=== PATIENT | female | born 1965 | race Hispanic/Latino ===

== ENCOUNTER 2017-11-28 01:03 | Emergency (ER) | payer MEDICARE, MEDICAID ==
--- NOTE | 2017-11-28 01:52 | C.PDOC ---
History Of Present Illness 52 y/o female with Hx of bipolar disorder and cigarette smoking presents to ED for complaints of nasal congestion associated with mild headache. Patient states she took Tylenol with no relief. Patient also states she wants a place to stay the night. Denies any other physical complaints. Patient also reports she is 'allergic' to oral antihistamines. Time Seen by Provider: 11/28/17 01:23 Chief Complaint (Nursing): Cough, Cold, Congestion History Per: Patient History/Exam Limitations: no limitations Onset/Duration Of Symptoms: Hrs Current Symptoms Are (Timing): Still Present Recent travel outside of the [place]: No Past Medical History Reviewed: Historical Data, Nursing Documentation, Vital Signs Vital Signs: Last Vital Signs Temp 97.1 F L 11/28/17 05:54 Pulse 78 11/28/17 05:54 Resp 20 11/28/17 05:54 BP 119/70 11/28/17 05:54 Pulse Ox 96 11/28/17 06:30 - Medical History PMH: Bipolar Disorder Surgical History: No Surg Hx Family History: States: No Known Family Hx - Social History Hx Alcohol Use: No Hx Substance Use: No - Immunization History Hx Tetanus Toxoid Vaccination: No Hx Influenza Vaccination: No Hx Pneumococcal Vaccination: No Review Of Systems Constitutional: Negative for: Fever, Chills ENT: Positive for: Nose Congestion. Negative for: Ear Pain, Throat Pain Gastrointestinal: Negative for: Nausea, Vomiting, Abdominal Pain, Diarrhea Skin: Negative for: Rash Neurological: Positive for: Headache. Negative for: Weakness, Numbness Psych: Negative for: Suicidal ideation Physical Exam - Physical Exam Appears: Well, Non-toxic, No Acute Distress Skin: Normal Color, Warm, Dry, No Rash Head: Atraumatic, Normacephalic Eye(s): bilateral: Normal Inspection, PERRL, EOMI Ear(s): Bilateral: Other (Mild erythematous ear canals) Nose: No Discharge, Other (Congested) Oral Mucosa: Moist Throat: Normal, No Erythema, No Exudate, No Drooling, No Mass Neck: Supple Chest: Symmetrical, No Tenderness Cardiovascular: Rhythm Regular, No Murmur Respiratory: Normal Breath Sounds, No Decreased Breath Sounds, No Rales, No Rhonchi, No Wheezing Gastrointestinal/Abdominal: Normal Exam (Clear to auscultation bilaterally ), Bowel Sounds (Normal; Active ), Soft, No Tenderness, No Distention Back: No CVA Tenderness Extremity: Normal ROM, No Calf Tenderness, No Deformity, No Swelling Extremity: Bilateral: Atraumatic, Normal Color And Temperature, Normal ROM Neurological/Psych: Oriented x3, Normal Speech, Other (No focal deficits ) Gait: Steady ED Course And Treatment O2 Sat by Pulse Oximetry: 96 (RA) Pulse Ox Interpretation: Normal Medical Decision Making Medical Decision Making: [facility], headache and cough. pt well appearing with congestion. lungs clear. pt slept comfortably supine for several hours in ED. will d/c with flonase. Disposition Counseled Patient/Family Regarding: Diagnosis, Need For Followup, Rx Given - Disposition Referrals: [facility] [Outside] Disposition: HOME/ ROUTINE Disposition Time: 05:45 Condition: GOOD Additional Instructions: Use flonase as directed. FOllow up in medical clinic. Return for worse symptoms. Prescriptions: Fluticasone Nasal [Flonase] 1 spr NS BID #120 spr Instructions: Seasonal Allergies (DC) Forms: [employer] (Palestinian), General Discharge Instructions - Clinical Impression Clinical Impression: Seasonal allergic rhinitis - PA / ONLINE MEDIA BUYER / Resident Statement MD/DO has reviewed & agrees with the documentation as recorded. - Scribe Statement The provider has reviewed the documentation as recorded by the Ravi Dominguez All medical record entries made by the Rajeshibisaac were at my direction and personally dictated by me. I have reviewed the chart and agree that the record accurately reflects my personal performance of the history, physical exam, medical decision making, and the department course for this patient. I have also personally directed, reviewed, and agree with the discharge instructions and disposition.
[2017-11-28 05:55] VITALS: BP 119/70; PULSE 78; RESP 20; TEMP 97.1
[2017-11-28 06:30] VITALS: O2SAT 96
== END 2017-11-28 05:55 | disposition home or self-care (01) ==
LOC: C.ER 01:03
DX: J30.2 Other seasonal allergic rhinitis (principal); Z87.891 Personal history of nicotine dependence

== ENCOUNTER 2018-01-02 16:47 | Emergency (ER) | payer MEDICARE, MEDICAID ==
[2018-01-02 16:48] VITALS: BMI 27.7
[2018-01-02 17:05] VITALS: RESP 18
--- NOTE | 2018-01-02 17:22 | C.PDOC ---
Time Seen by Provider: 01/02/18 17:18 Chief Complaint (Nursing): Psychiatric Evaluation Past Medical History Vital Signs: Last Vital Signs Temp 98.2 F 01/02/18 16:59 Pulse 96 H 01/02/18 16:59 Resp 18 01/02/18 16:59 BP 129/83 01/02/18 16:59 Pulse Ox 97 01/02/18 16:59 - Medical History PMH: Anxiety, Bipolar Disorder, Schizophrenia Denies: Diabetes, Hepatitis, HIV, HTN, Chronic Kidney Disease, Seizures, Sexually Transmitted Disease - [facility] Procedures GROUP PSYCHOTHERAPY (12/10/17) INDIVIDUAL PSYCHOTHERAPY, SUPPORTIVE (12/10/17) - Social History Hx Alcohol Use: No Hx Substance Use: No - Immunization History Hx Tetanus Toxoid Vaccination: No Hx Influenza Vaccination: No Hx Pneumococcal Vaccination: No ED Course And Treatment O2 Sat by Pulse Oximetry: 97 Disposition - Disposition
--- NOTE | 2018-01-02 18:10 | C.PDOC ---
Time Seen by Provider: 01/02/18 17:18 Chief Complaint (Nursing): Psychiatric Evaluation Past Medical History Vital Signs: Last Vital Signs Temp 98.2 F 01/02/18 16:59 Pulse 96 H 01/02/18 16:59 Resp 18 01/02/18 16:59 BP 129/83 01/02/18 16:59 Pulse Ox 97 01/02/18 18:13 - Medical History PMH: Anxiety, Bipolar Disorder, Schizophrenia Denies: Diabetes, Hepatitis, HIV, HTN, Chronic Kidney Disease, Seizures, Sexually Transmitted Disease - [facility] Procedures GROUP PSYCHOTHERAPY (12/10/17) INDIVIDUAL PSYCHOTHERAPY, SUPPORTIVE (12/10/17) - Social History Hx Alcohol Use: No Hx Substance Use: No - Immunization History Hx Tetanus Toxoid Vaccination: No Hx Influenza Vaccination: No Hx Pneumococcal Vaccination: No ED Course And Treatment O2 Sat by Pulse Oximetry: 97 Medical Decision Making Medical Decision Makin pt seen by Teri from crisis; she has spoken to pt's disability case manager who will see pt tomorrow and help arrange for outpt program. pt is cleared from crisis for discharge. Disposition Counseled Patient/Family Regarding: Diagnosis, Need For Followup - Disposition Disposition: HOME/ ROUTINE Disposition Time: 18:11 Condition: GOOD Additional Instructions: Please make sure to see your disability case manager tomorrow to arrange for outpatient day program. Continue to take your medications as prescribed. Return to ER for any worsening symptoms. Forms: [employer] (German), General Discharge Instructions - Clinical Impression Clinical Impression: Bipolar disorder, Encounter for psychiatric assessment
--- NOTE | 2018-01-02 18:16 | C.PDOC ---
History Of Present Illness 52-year-old female, is sent to the emergency department from [facility] for evaluation of manic behavior. Patient denies an auditory hallucinations. States she is compliant with medications. She denies any suicidal or homicidal ideation. No other complaints at this time. Time Seen by Provider: 01/02/18 17:18 Chief Complaint (Nursing): Psychiatric Evaluation History Per: Patient Current Symptoms Are (Timing): Still Present Past Medical History Reviewed: Historical Data, Nursing Documentation, Vital Signs Vital Signs: Last Vital Signs Temp 98.8 F 01/02/18 18:26 Pulse 95 H 01/02/18 18:26 Resp 18 01/02/18 18:26 BP 108/72 01/02/18 18:26 Pulse Ox 96 01/02/18 18:26 - Medical History PMH: Anxiety, Bipolar Disorder, Schizophrenia Denies: Diabetes, Hepatitis, HIV, HTN, Chronic Kidney Disease, Seizures, Sexually Transmitted Disease - [facility] Procedures GROUP PSYCHOTHERAPY (12/10/17) INDIVIDUAL PSYCHOTHERAPY, SUPPORTIVE (12/10/17) Family History: States: No Known Family Hx - Social History Hx Alcohol Use: No Hx Substance Use: No - Immunization History Hx Tetanus Toxoid Vaccination: No Hx Influenza Vaccination: No Hx Pneumococcal Vaccination: No Review Of Systems Psych: Positive for: Other (Manic behavior). Negative for: Depression, Psychosis, Suicidal ideation, Withdrawal Physical Exam - Physical Exam Appears: Non-toxic, No Acute Distress, Other (Tangential, scattered thoughts.) Skin: Normal Color, Warm, Dry, No Rash Head: Atraumatic Eye(s): bilateral: Normal Inspection Nose: Normal Oral Mucosa: Moist Lips: Normal Appearing Neck: Normal ROM Cardiovascular: Rhythm Regular, No Murmur Respiratory: Normal Breath Sounds, No Accessory Muscle Use Gastrointestinal/Abdominal: Soft, No Tenderness Extremity: Normal ROM, No Deformity, No Swelling Neurological/Psych: Oriented x3, Normal Speech ED Course And Treatment O2 Sat by Pulse Oximetry: 97 (RA) Pulse Ox Interpretation: Normal Medical Decision Making Medical Decision Making: Case discussed with community organization worker, states she will evaluate pt and schedule outpatient therapy for patient. 1800 pt seen by Teri from crisis; she has spoken to pt's lining caser who will see pt tomorrow and help arrange for outpt program. pt is cleared from crisis for discharge. Disposition - Disposition Disposition: HOME/ ROUTINE Disposition Time: 18:11 Condition: GOOD Additional Instructions: Please make sure to see your lining caser tomorrow to arrange for outpatient day program. Continue to take your medications as prescribed. Return to ER for any worsening symptoms. Instructions: Bipolar Disorder (DC) Forms: General Discharge Instructions, [facility] [facility] (Malagasy) - Clinical Impression Clinical Impression: Bipolar disorder, Encounter for psychiatric assessment - Scribe Statement The provider has reviewed the documentation as recorded by the Scribe (Niurka Holbrook) All medical record entries made by the Scribe were at my direction and personally dictated by me. I have reviewed the chart and agree that the record accurately reflects my personal performance of the history, physical exam, medical decision making, and the department course for this patient. I have also personally directed, reviewed, and agree with the discharge instructions and disposition.
[2018-01-02 18:27] VITALS: BP 108/72; PULSE 95; TEMP 98.8
[2018-01-03 19:48] VITALS: O2SAT 97
== END 2018-01-02 18:47 | disposition home or self-care (01) ==
LOC: C.ER 16:47
DX: F31.9 Bipolar disorder, unspecified (principal)

== ENCOUNTER 2018-02-05 13:18 | Emergency (ER) | payer MEDICARE, MEDICAID ==
[2018-02-05 13:18] VITALS: BMI 27.7
[2018-02-05 13:56] VITALS: BP 126/83; PULSE 93; RESP 18; TEMP 99.1; O2SAT 96
--- NOTE | 2018-02-05 14:29 | C.PDOC ---
History Of Present Illness Patient reports that she currently lives at a snf and is very overwhelmed and anxious. States that years ago she used to be on Lamictal for her anxiety and that she would like a new prescription for it, including refills, because "it's the only thing that worked and it's important that I have something for my anxiety". She has no other complaints besides feeling overwhelmed. No SI/HI. No EtOH or drug abuse. Time Seen by Provider: 02/05/18 14:11 Chief Complaint (Nursing): Anxiety Past Medical History Vital Signs: Last Vital Signs Temp 99.1 F 02/05/18 13:52 Pulse 93 H 02/05/18 13:52 Resp 18 02/05/18 13:52 BP 126/83 02/05/18 13:52 Pulse Ox 96 02/05/18 13:52 - Medical History PMH: Anxiety, Bipolar Disorder, Schizophrenia Denies: Diabetes, Hepatitis, HIV, HTN, Chronic Kidney Disease, Seizures, Sexually Transmitted Disease - [facility] Procedures GROUP PSYCHOTHERAPY (12/10/17) INDIVIDUAL PSYCHOTHERAPY, SUPPORTIVE (12/10/17) Family History: States: Unknown Family Hx - Social History Hx Tobacco Use: No Hx Alcohol Use: No Hx Substance Use: No - Immunization History Hx Tetanus Toxoid Vaccination: No Hx Influenza Vaccination: Yes Hx Pneumococcal Vaccination: Yes Review Of Systems Except As Marked, All Systems Reviewed And Found Negative. Constitutional: Negative for: Fever, Chills Cardiovascular: Negative for: Chest Pain Respiratory: Negative for: Cough, Shortness of Breath Gastrointestinal: Negative for: Nausea, Vomiting, Abdominal Pain Neurological: Negative for: Altered Mental Status Psych: Positive for: Anxiety Physical Exam - Physical Exam Appears: Other (Anxious) Skin: Normal Color, Warm, Dry Oral Mucosa: Moist Chest: Symmetrical Cardiovascular: Rhythm Regular Respiratory: Normal Breath Sounds Gastrointestinal/Abdominal: Normal Exam Extremity: Normal ROM Neurological/Psych: Oriented x3 ED Course And Treatment O2 Sat by Pulse Oximetry: 96 Medical Decision Making Medical Decision Making: Explained to the patient that we cannot prescribe Lamictal or any other psychiatric medications from the ED. Gave the patient information for [place] and advised her to follow up there. Patient has no SI/HI and is stable for discharge. Disposition - Disposition Disposition: HOME/ ROUTINE Disposition Time: 14:34 Condition: GOOD Additional Instructions: ALPHONSO SIMMS, thank you for letting us take care of you today. Your provider was Alicia Mota MD and you were treated for ANXIETY ATTACK. The emergency medical care you received today was directed at your acute symptoms. If you were prescribed any medication, please fill it and take as directed. It may take several days for your symptoms to resolve. Return to the Emergency Department if your symptoms worsen, do not improve, or if you have any other problems. Please contact your doctor or call one of the physicians/clinics you have been referred to that are listed on the Patient Visit Information form that is included in your discharge packet. Bring any paperwork you were given at discharge with you along with any medications you are taking to your follow up visit. Our treatment cannot replace ongoing medical care by a primary care provider outside of the emergency department. Thank you for allowing the [facility] team to be part of your care today. If you had an X-Ray or CT scan: A Radiologist will review the ED reading if any change in treatment is needed we will contact you. If you had a blood, urine, or wound culture: It will take several days for the results, if any change in treatment is needed we will contact you. If you had an STI test: It will take 48 hours for the results. Please call after 1 week if you have not heard back. Instructions: Anxiety, Adult (DC) Forms: [employer] (Romanian) - Clinical Impression Clinical Impression: Anxiety
== END 2018-02-05 14:33 | disposition home or self-care (01) ==
LOC: C.ER 13:18
DX: F41.9 Anxiety disorder, unspecified (principal)

== ENCOUNTER 2018-02-09 07:08 | Emergency (ER) | payer MEDICARE, MEDICAID ==
[2018-02-09 07:08] VITALS: BMI 27.7
[2018-02-09 07:35] VITALS: BP 108/74; PULSE 79; RESP 16; TEMP 98.1; O2SAT 98
--- NOTE | 2018-02-09 07:41 | C.PDOC ---
History Of Present Illness 52 years old female presents to ED for prescription refill "so I can take it myself." Patient states she lives at [facility] and they hold her medications and doses them accordingly. Patient also reports "I want to be able to take my medications myself without having to stand on line." Patient reports last does was yesterday. Denies any physical complaints. Patient was also seen 02/05 for anxiety and was requesting medication refill. Patient has had prior psychiatric admissions for schizophrenia, non-compliant. Patient was previously advised that ER does not refill for psychiatric medications. REQUESTING RX REFILL "SO I CAN TAKE IT MYSELF". PS LIVES @ [facility]. RESIDENTIAL HOLDS THE PT'S MEDS AND DOSES THEM ACCORDINGLY. "I WANT TO BE ABLE TO TAKE MY MEDS MYSELF WITHOUT HAVING TO STAND ON LINE". LAST DOSE YEST. ASYMPT. SEEN 02/05 FOR ANXIETY, REQUESTING MED REFILL. PRIOR PSYCH ADMISSION FOR SCHIZOPHRENIA, NONCOMPLIANT. PT PREV ADVISED THAT ER DOES NOT REFILL PSYCH MEDS EXAM NAD NONTOXIC PSYCH CALM COOPERATIVE INTERACTIVE APPROPRIATE. NO ACUTE PSYCHOSIS, INTOX REMAINDER NEG Chief Complaint (Nursing): Psychiatric Evaluation History Per: Patient History/Exam Limitations: no limitations Onset/Duration Of Symptoms: Hrs Current Symptoms Are (Timing): Still Present Suicide/Self Injury Attempted (Context): None Modifying Factor(s): None Associated Symptoms: denies: Suicidal Thoughts, Suicidal Plan Involuntary Hold By: None Recent travel outside of the [place]: No Past Medical History Reviewed: Historical Data, Nursing Documentation, Vital Signs Vital Signs: Last Vital Signs Temp 98.1 F 02/09/18 07:12 Pulse 79 02/09/18 07:12 Resp 16 02/09/18 07:12 BP 108/74 02/09/18 07:12 Pulse Ox 98 02/09/18 07:12 - Medical History PMH: Anxiety, Bipolar Disorder, Schizophrenia Surgical History: No Surg Hx - [facility] Procedures GROUP PSYCHOTHERAPY (12/10/17) INDIVIDUAL PSYCHOTHERAPY, SUPPORTIVE (12/10/17) Family History: States: Unknown Family Hx - Social History Hx Tobacco Use: No Hx Alcohol Use: No Hx Substance Use: No - Immunization History Hx Tetanus Toxoid Vaccination: No Hx Influenza Vaccination: Yes Hx Pneumococcal Vaccination: Yes Review Of Systems Except As Marked, All Systems Reviewed And Found Negative. Physical Exam - Physical Exam Appears: Well, Non-toxic, No Acute Distress, Other (Psych patient. Calm, Cooperative, Interactive and Appropriate. No Acute psychosis. Intoxicated ) Skin: Normal Color, Warm, Dry, No Rash Head: Atraumatic, Normacephalic Eye(s): bilateral: Normal Inspection, PERRL, EOMI Oral Mucosa: Moist Neck: Supple Chest: Symmetrical, No Tenderness Cardiovascular: Rhythm Regular, No Murmur Respiratory: Normal Breath Sounds, No Rales, No Rhonchi, No Wheezing, Other (NARD) Gastrointestinal/Abdominal: Bowel Sounds (Active ), Soft, No Tenderness Extremity: Bilateral: Atraumatic, Normal Color And Temperature, Normal ROM Pulses: Left Radial: Normal, Right Radial: Normal Neurological/Psych: Oriented x3, Normal Speech, Other (No focal deficits ) Gait: Steady ED Course And Treatment O2 Sat by Pulse Oximetry: 98 (RA) Pulse Ox Interpretation: Normal Progress - Re-Evaluation Re-evaluation Note: 02/09/18 07:48 D/W CRISIS JOHNNA LOPEZ IN ER - Data Reviewed Data Reviewed: Old records Medical Decision Making Medical Decision Making: Plan: * Crisis Notified Disposition Counseled Patient/Family Regarding: Diagnosis, Need For Followup - Disposition Referrals: [facility] [Provider Group] Disposition: HOME/ ROUTINE Disposition Time: 08:20 Condition: GOOD Instructions: Schizophrenia (DC) Forms: [facility] (Turkish) - Clinical Impression Clinical Impression: Encounter for medication refill, Schizophrenia - Scribe Statement The provider has reviewed the documentation as recorded by the Scribe Nelly Dominguez All medical record entries made by the Scribe were at my direction and personally dictated by me. I have reviewed the chart and agree that the record accurately reflects my personal performance of the history, physical exam, medical decision making, and the department course for this patient. I have also personally directed, reviewed, and agree with the discharge instructions and disposition.
== END 2018-02-09 08:24 | disposition home or self-care (01) ==
LOC: C.ER 07:08
DX: F20.9 Schizophrenia, unspecified (principal); Z76.0 Encounter for issue of repeat prescription